=== PATIENT | male | born 1955 | race Caucasian/White ===

== ENCOUNTER 2020-01-17 06:45 | Outpatient (CLI) | payer BC, SELFPAY ==
[2020-01-17 08:46] LABS: Alanine Aminotransferase 23 U/L (4-50); Albumin Level 4.3 g/dL (3.5-5.1); Alkaline Phosphatase 119 U/L (38-126); Aspartate Amino Transferase 29 U/L (17-59); Bilirubin,Total 0.5 mg/dL (0.2-1.3); Blood Urea Nitrogen 23 mg/dL (9-20); Calcium 9.4 mg/dL (8.4-10.2); Carbon Dioxide 27 mmol/L (22-30); Chloride 98 mmol/L (98-107); Cholesterol 250 mg/dL (0-200); Estimated Glomerular Filt Rate > 60; Glucose 98 mg/dL (75-110); HDL Direct 43 mg/dL; Potassium 3.9 mmol/L (3.4-5.0); Sodium 138 mmol/L (137-145); Triglycerides 410 mg/dL (<150); Uric Acid 6.9 mg/dL (3.5-8.5)
[2020-01-17 08:57] LABS: LDL Cholesterol Direct 112 mg/dL
[2020-01-17 11:38] LABS: Vitamin D 25 Hydroxy 29.4 ng/mL
[2020-01-20 12:35] LABS: Testosterone Total 270 ng/dL (250-1100)
== END 2020-01-17 06:46 | disposition home or self-care (01) ==
PROVIDERS: PCP Internal Medicine; Visit Provider Internal Medicine
DX: E78.5 Hyperlipidemia, unspecified (principal); E55.9 Vitamin D deficiency, unspecified; M10.9 Gout, unspecified; I10 Essential (primary) hypertension; Z79.899 Other long term (current) drug therapy; E29.1 Testicular hypofunction
CPT/HCPCS: 36415; 80053; 80061; 82306; 84403; 84550

== ENCOUNTER 2020-07-17 07:11 | Outpatient (CLI) | payer BC, SELFPAY ==
[2020-07-17 08:44] LABS: Alanine Aminotransferase 28 U/L (4-50); Albumin Level 4.2 g/dL (3.5-5.1); Alkaline Phosphatase 114 U/L (38-126); Anion Gap 8 mmol/L (8-16); Aspartate Amino Transferase 32 U/L (17-59); Bilirubin,Total 0.5 mg/dL (0.2-1.3); Blood Urea Nitrogen 17 mg/dL (9-20); Carbon Dioxide 28 mmol/L (22-30); Chloride 100 mmol/L (98-107); Cholesterol 242 mg/dL (0-200); Estimated Glomerular Filt Rate > 60; Glucose 106 mg/dL (75-110); HDL Direct 48 mg/dL; Sodium 136 mmol/L (137-145); Triglycerides 412 mg/dL (<150); Uric Acid 7.6 mg/dL (3.5-8.5)
[2020-07-17 08:55] LABS: LDL Cholesterol Direct 118 mg/dL
[2020-07-17 09:12] LABS: Prostate Specific Antigen 0.5 ng/mL (< OR = 4.0)
== END 2020-07-17 07:12 | disposition home or self-care (01) ==
LOC: ANHLAB 07:13
PROVIDERS: PCP Internal Medicine; Visit Provider Internal Medicine
DX: E78.5 Hyperlipidemia, unspecified (principal); I10 Essential (primary) hypertension; M10.9 Gout, unspecified; Z79.899 Other long term (current) drug therapy; Z12.5 Encounter for screening for malignant neoplasm of prostate
CPT/HCPCS: 36415; 80053; 80061; 84153; 84550; G0103

== ENCOUNTER 2021-06-25 06:42 | Outpatient (CLI) | payer BC, SELFPAY ==
[2021-06-25 07:49] LABS: Alanine Aminotransferase 22 U/L (4-50); Albumin Level 4.5 g/dL (3.5-5.1); Alkaline Phosphatase 136 U/L (38-126); Anion Gap 12 mmol/L (8-16); Aspartate Amino Transferase 26 U/L (17-59); Bilirubin,Total 0.6 mg/dL (0.2-1.3); Blood Urea Nitrogen 23 mg/dL (9-20); Calcium 10.2 mg/dL (8.4-10.2); Carbon Dioxide 26 mmol/L (22-30); Chloride 100 mmol/L (98-107); Cholesterol 274 mg/dL (0-200); Estimated Glomerular Filt Rate 38; Glucose 101 mg/dL (65-110); HDL Direct 54 mg/dL; Potassium 4.1 mmol/L (3.4-5.0); Sodium 138 mmol/L (137-145); Triglycerides 408 mg/dL (<150)
[2021-06-25 08:00] LABS: LDL Cholesterol Direct 109 mg/dL
[2021-06-30 06:44] LABS: Testosterone Total 244 ng/dL (250-1100)
== END 2021-06-25 06:43 | disposition home or self-care (01) ==
PROVIDERS: PCP Internal Medicine; Visit Provider Internal Medicine
DX: I10 Essential (primary) hypertension (principal); M10.9 Gout, unspecified; Z51.81 Encounter for therapeutic drug level monitoring; E78.5 Hyperlipidemia, unspecified; E29.1 Testicular hypofunction
CPT/HCPCS: 36415; 80053; 80061; 84403; 84550

== ENCOUNTER 2021-12-17 07:28 | Outpatient (CLI) | payer BC, SELFPAY ==
[2021-12-17 07:58] LABS: Alanine Aminotransferase 27 U/L (4-50); Albumin Level 4.6 g/dL (3.5-5.1); Alkaline Phosphatase 129 U/L (38-126); Anion Gap 10 mmol/L (8-16); Aspartate Amino Transferase 34 U/L (17-59); Bilirubin,Total 0.8 mg/dL (0.2-1.3); Blood Urea Nitrogen 33 mg/dL (9-20); Carbon Dioxide 29 mmol/L (22-30); Chloride 97 mmol/L (98-107); Cholesterol 172 mg/dL (0-200); Estimated Glomerular Filt Rate 38; Glucose 115 mg/dL (65-110); HDL Direct 51 mg/dL; Potassium 4.4 mmol/L (3.4-5.0); Sodium 136 mmol/L (137-145); Triglycerides 227 mg/dL (<150)
[2021-12-17 08:09] LABS: LDL Cholesterol Direct 72 mg/dL
[2021-12-17 08:28] LABS: Prostate Specific Antigen 0.6 ng/mL (< OR = 4.0)
[2021-12-21 01:48] LABS: Testosterone Total 313 ng/dL (250-1100)
== END 2021-12-17 07:29 | disposition home or self-care (01) ==
PROVIDERS: PCP Internal Medicine; Visit Provider Internal Medicine
DX: I10 Essential (primary) hypertension (principal); Z51.81 Encounter for therapeutic drug level monitoring; Z12.5 Encounter for screening for malignant neoplasm of prostate; E29.1 Testicular hypofunction
CPT/HCPCS: 36415; 80053; 80061; 84153; 84403; G0103

== ENCOUNTER 2022-01-23 07:51 | Outpatient (CLI) | payer BC, SELFPAY ==
[2022-01-23 08:34] LABS: Hematocrit 38.1 % (42.0-52.0); Hemoglobin 12.9 g/dL (14.0-18.0); Mean Corpuscular HGB Conc 33.9 g/dl (32-36); Mean Corpuscular Hemoglobin 30.4 pg (26-34); Mean Corpuscular Volume 89.6 fl (80-100); Mean Platelet Volume 8.6 fl (7.4-10.4); Platelet Count Result 433 k/mm3 (150-375); Red Blood Count 4.25 M/mm3 (4.6-6.20); Red Cell Distribution Width 13.8 % (11.5-14.5); White Blood Count 7.7 K/mm3 (4.5-10.0)
[2022-01-23 08:40] LABS: Add Urine Microscopic? NO; Appearance Urine Clear (Clear); Bilirubin Urine Negative (Negative); Blood Urine Negative (Negative); Color Urine Yellow (Yellow); Glucose Urine UA Negative (Negative); Ketones Urine Negative (Negative); Leukocyte Esterase Ur Negative LEU/UL (Negative); Nitrate Urine Negative (Negative); Protein Urine Negative (Negative); Specific Grav Ur 1.009 (1.001-1.035); Urobilinogen Urine Negative mg/dL (<2.0)
[2022-01-23 08:44] LABS: Creatinine Urine 82.8 mg/dL; Total Protein Urine Random 10 mg/dL; Ur Ttl Prot Creatinine Ratio 0.12 mg/mg (0-0.20)
[2022-01-23 09:09] LABS: Complement C3 119 mg/dL (88-165)
[2022-01-23 09:11] LABS: Albumin Level 4.3 g/dL (3.5-5.1); Anion Gap 10 mmol/L (8-16); Blood Urea Nitrogen 17 mg/dL (9-20); Calcium 9.4 mg/dL (8.4-10.2); Carbon Dioxide 28 mmol/L (22-30); Chloride 100 mmol/L (98-107); Estimated Glomerular Filt Rate 44; Glucose 115 mg/dL (65-110); Phosphorus 3.2 mg/dL (2.5-4.5); Potassium 4.4 mmol/L (3.4-5.0); Sodium 138 mmol/L (137-145)
[2022-01-23 09:17] LABS: Parathyroid Intact 33.8 pg/mL (7.5-53.5)
[2022-01-23 09:23] LABS: Erythrocyte Sedimentation Rate 22 mm/hr (0-20)
[2022-01-25 13:29] LABS: Complement Total CH50 >60 U/mL (31-60)
[2022-01-25 16:52] LABS: Kappa\\Lambda Light Chains 1.35 (0.26-1.65); Lambda Light Chain 22.8 mg/L (5.7-26.3)
[2022-01-28 15:02] LABS: Measured Kappa Chains <1.00 mg/dL (<2.00); Measured Lambda Chains <1.00 mg/dL (<2.00)
== END 2022-01-23 07:52 | disposition home or self-care (01) ==
LOC: ANHLAB 07:53
PROVIDERS: PCP Internal Medicine; Visit Provider Internal Medicine Nephrology
DX: N18.32 Chronic kidney disease, stage 3b (principal)
CPT/HCPCS: 36415; 80069; 81003; 82570; 83883; 83970; 84156; 85027; 85652; 86038; 86160; 86162; 86334; 86335

== ENCOUNTER 2022-05-04 07:41 | Outpatient (CLI) | payer BC, SELFPAY ==
--- NOTE | ~2022-05-04 | US_ITS ---
US renal BI 05/04/2022 08:04 Procedure: Realtime transabdominal ultrasound of the kidneys and bladder. Indication: Chronic kidney disease stage III Comparison: No prior studies for comparison. Findings: There is bilateral renal cortical thinning with increased cortical echotexture. Bilateral c ysts are present measuring 11 mm or less. No renal masses, hydronephrosis or stones identified. Bilat eral ureteral jets are present. The right kidney measures 11.1 cm and left kidney measures 14.4 cm. Bladder within normal limits. Prostate gland is enlarged. Impression: 1: Bilateral renal cortical thinning with increased cortical echotexture, consistent with chronic micki al disease. Reviewed, dictated and finalized at location B. Impression: 1: Bilateral renal cortical thinning with increased cortical echotexture, consi stent with chronic renal disease.
== END 2022-05-04 07:42 | disposition home or self-care (01) ==
PROVIDERS: PCP Internal Medicine; Visit Provider Internal Medicine Nephrology
DX: N18.32 Chronic kidney disease, stage 3b (principal)
CPT/HCPCS: 76775

== ENCOUNTER 2022-06-23 06:55 | Outpatient (CLI) | payer BC, SELFPAY ==
[2022-06-23 16:14] LABS: Alanine Aminotransferase 25 U/L (6-50); Albumin Level 4.5 g/dL (3.5-5.1); Alkaline Phosphatase 133 U/L (38-126); Anion Gap 11 mmol/L (8-16); Aspartate Amino Transferase 28 U/L (17-59); Bilirubin,Total 0.4 mg/dL (0.2-1.3); Blood Urea Nitrogen 27 mg/dL (9-20); Calcium 9.3 mg/dL (8.4-10.2); Carbon Dioxide 29 mmol/L (22-30); Chloride 99 mmol/L (98-107); Cholesterol 206 mg/dL (0-200); Estimated Glomerular Filt Rate 47; Glucose 104 mg/dL (65-110); HDL Direct 64 mg/dL; Potassium 4.4 mmol/L (3.4-5.0); Sodium 139 mmol/L (137-145); Triglycerides 256 mg/dL (<150); Uric Acid 7.6 mg/dL (3.5-8.5)
[2022-06-23 16:24] LABS: LDL Cholesterol Direct 75 mg/dL
[2022-06-23 16:30] LABS: Vitamin D 25 Hydroxy 58.9 ng/mL
[2022-06-27 16:12] LABS: Testosterone Total 317 ng/dL (250-1100)
== END 2022-06-23 06:56 | disposition home or self-care (01) ==
LOC: ANHLAB 06:56
PROVIDERS: PCP Internal Medicine; Visit Provider Internal Medicine
DX: Z51.81 Encounter for therapeutic drug level monitoring (principal); I10 Essential (primary) hypertension; E29.1 Testicular hypofunction; M10.9 Gout, unspecified; E55.9 Vitamin D deficiency, unspecified
CPT/HCPCS: 36415; 80053; 80061; 82306; 84403; 84550

== ENCOUNTER 2022-12-30 08:14 | Outpatient (CLI) | payer BC, SELFPAY ==
[2022-12-30 08:45] LABS: Alanine Aminotransferase 32 U/L (6-50); Albumin Level 4.8 g/dL (3.5-5.1); Alkaline Phosphatase 141 U/L (38-126); Anion Gap 11 mmol/L (8-16); Aspartate Amino Transferase 42 U/L (17-59); Bilirubin,Total 0.9 mg/dL (0.2-1.3); Blood Urea Nitrogen 26 mg/dL (9-20); Calcium 9.1 mg/dL (8.4-10.2); Carbon Dioxide 27 mmol/L (22-30); Chloride 96 mmol/L (98-107); Cholesterol 181 mg/dL (0-200); Estimated Glomerular Filt Rate 41; Glucose 116 mg/dL (65-110); HDL Direct 55 mg/dL; Potassium 3.3 mmol/L (3.4-5.0); Sodium 134 mmol/L (137-145); Triglycerides 307 mg/dL (<150); Uric Acid 8.9 mg/dL (3.5-8.5)
[2022-12-30 08:56] LABS: LDL Cholesterol Direct 58 mg/dL
[2022-12-30 09:33] LABS: Vitamin D 25 Hydroxy 51.2 ng/mL
== END 2022-12-30 08:15 | disposition home or self-care (01) ==
PROVIDERS: PCP Internal Medicine; Visit Provider Internal Medicine
DX: Z51.81 Encounter for therapeutic drug level monitoring (principal); I10 Essential (primary) hypertension; E78.5 Hyperlipidemia, unspecified; E55.9 Vitamin D deficiency, unspecified; M10.9 Gout, unspecified
CPT/HCPCS: 36415; 80053; 80061; 82306; 84550

== ENCOUNTER 2023-07-14 06:52 | Outpatient (CLI) | payer BC, SELFPAY ==
[2023-07-14 08:00] LABS: Alanine Aminotransferase 32 U/L (6-50); Albumin Level 4.4 g/dL (3.5-5.1); Alkaline Phosphatase 131 U/L (38-126); Anion Gap 9 mmol/L (8-16); Aspartate Amino Transferase 32 U/L (17-59); Bilirubin,Total 0.7 mg/dL (0.2-1.3); Blood Urea Nitrogen 24 mg/dL (9-20); Calcium 9.3 mg/dL (8.4-10.2); Carbon Dioxide 29 mmol/L (22-30); Chloride 99 mmol/L (98-107); Cholesterol 203 mg/dL (0-200); Estimated Glomerular Filt Rate 47; Glucose 108 mg/dL (65-110); HDL Direct 51 mg/dL; Potassium 3.7 mmol/L (3.4-5.0); Sodium 137 mmol/L (137-145); Triglycerides 326 mg/dL (<150)
[2023-07-14 08:10] LABS: LDL Cholesterol Direct 79 mg/dL
[2023-07-14 08:30] LABS: Prostate Specific Antigen 0.8 ng/mL (< OR = 4.0)
== END 2023-07-14 06:53 | disposition home or self-care (01) ==
LOC: ANHLAB 06:53
PROVIDERS: PCP Nurse Practitioner Family; Visit Provider Nurse Practitioner
DX: E78.5 Hyperlipidemia, unspecified (principal); Z12.5 Encounter for screening for malignant neoplasm of prostate
CPT/HCPCS: 36415; 80053; 80061; 84153; G0103

== ENCOUNTER 2023-11-01 03:31 | Day surgery (SDC) | payer BC, SELFPAY ==
[2023-10-23 15:36] VITALS: BMI 30.4
--- NOTE | 2023-10-30 11:41 | SUR.PREOP ---
Patient called regarding upcoming procedure. Reviewed preop instructions, appointment times, and procedure prep.
--- NOTE | 2023-10-31 15:47 | PM.HPGS ---
History of Present Illness History of Present Illness Consent: Risks, benefits, and alternatives have been discussed and questions answered. Patient agrees to proceed with procedure. Chief complaint: neoplasm screening Narrative: Abhi Mckeon is a 67 year old male Referred for colon cancer screening. This is I believe his 1st colonoscopy. Review of Systems Review of Systems: All systems reviewed & are unremarkable except as noted in HPI and below PMFSH Past Medical History Medical History Hypertension Family History Family History Sibling Patient's sister is in good health Patient's brother is in good health Mother Family history of arthritis Father Family history of diabetes mellitus in first degree relative Diabetes mellitus Social History Social History Smoking packs per day: 1 Smoking cigarettes per day: 20.0 Years smoked: 28 Smoking pack-years: 28.00 Smoking status: Former smoker Tobacco type: cigarettes Second hand tobacco smoke exposure: Yes Smoking end date: 11/26/85 Alcohol intake: current Drinks per week: 7 Alcohol use details: 1 RUM DAILY Substance use: never Substance use type: does not use Lack of Transportation: No Lack of Food: Never True Current Housing: I Have Housing Concerned About Future Housing: No Difficulty Paying Gas/Electric Bills: No Difficulty Paying for Meds: No Currently Unemployed: No Education: Associate Degree Difficulty w/ Childcare or Family Care: No Living arrangements: with family Gender identity (if verbalized by the patient): Male Spiritual care concerns: No Meds Home Medications and Allergies Home Medications Medication Instructions Recorded Confirmed Type aspirin 81 mg chewable tablet 81 mg PO DAILY 10/22/19 10/23/23 History cholecalciferol (vitamin D3) 25 25 mcg PO DAILY 07/08/21 10/23/23 History mcg (1,000 unit) capsule famotidine 20 mg tablet 20 mg PO DAILY 07/08/21 10/23/23 History tzeepbgv-tj-wqcwp 300 mcg-K 60 1 tablet PO DAILY 07/08/21 10/23/23 History mcg-lycop 600 mcg-lutein 300 mcg tablet (Centrum Silver Men) turmeric root extract 500 mg 500 mg PO DAILY 07/08/21 10/23/23 History capsule omega-3 acid ethyl esters 1 gram 1 cap PO BID #180 caps 01/17/22 10/23/23 Rx capsule (Lovaza) fluticasone propionate 50 2 spray intranasal DAILY #16 grams 01/02/23 10/23/23 Rx mcg/actuation nasal spray,suspension (Flonase Allergy Relief) mecobalamin (vitamin B12) 1,000 1,000 mcg PO DAILY 01/02/23 10/23/23 History mcg chewable tablet amlodipine 5 mg tablet 5 mg PO DAILY #90 tabs 03/12/23 10/23/23 Rx irbesartan 300 mg tablet See Rx Instructions .Route 05/14/23 10/23/23 Rx .COMPLEX #90 tabs chlorthalidone 25 mg tablet See Rx Instructions .Route 06/08/23 10/23/23 Rx .COMPLEX #90 tabs atorvastatin 40 mg tablet 40 mg PO QHS #90 tabs 07/16/23 10/23/23 Rx Allergies Allergy/AdvReac Type Severity Reaction Status Date / Time poison rossi extract Allergy Unknown Hives Verified 11/01/23 09:49 Exam Resp: Auscultation: clear to auscultation bilaterally Cardio: Rate: regular rate Rhythm: regular rhythm GI: GI Palp: Yes Soft to palpation and No Tenderness to palpation present (GI) Assessment and Plan Assessment and plan (1) Screening for colon cancer: Code(s): Z12.11 - Encounter for screening for malignant neoplasm of colon Status: Acute Assessment and Plan: Colonoscopy with possible biopsy or polypectomy or cautery or injection of substances.
[2023-11-01 09:52] VITALS: BP 125/75; PULSE 79; RESP 18; TEMP 36.1; O2SAT 97
[2023-11-01] MEDS: LACTATED RINGERS 1,000 ML 150 ML IV CONT (10:01)
--- NOTE | 2023-11-01 10:16 | WPDANESEPPF ---
Anes - Initial Pre Proc Eval Procedure: Operation Date: 11/01/23 10:30 Proposed Procedures p Screening Colonoscopy - Gen Ojeda MD Date/Time: 11/01/23 10:16 Surgeon: Gen Ojeda MD Pre Op Diagnosis: neoplasm screening Patient Data Age: 67 Gender: M Height: 1.83 m Weight: 101.4 kg Last Vital Signs Temp 96.9 F L 11/01/23 09:52 Pulse 79 11/01/23 09:52 Resp 18 11/01/23 09:52 BP 125/75 11/01/23 09:52 Pulse Ox 97 11/01/23 09:52 O2 Del Method Room Air 11/01/23 09:52 Allergies Allergy/AdvReac Type Severity Reaction Status Date / Time poison rossi extract Allergy Unknown Hives Verified 11/01/23 09:49 Home Medications Medication Instructions Recorded Confirmed Type aspirin 81 mg chewable tablet 81 mg PO DAILY 10/22/19 10/23/23 History cholecalciferol (vitamin D3) 25 25 mcg PO DAILY 07/08/21 10/23/23 History mcg (1,000 unit) capsule famotidine 20 mg tablet 20 mg PO DAILY 07/08/21 10/23/23 History qwxqhsvt-xe-xtddl 300 mcg-K 60 1 tablet PO DAILY 07/08/21 10/23/23 History mcg-lycop 600 mcg-lutein 300 mcg tablet (Centrum Silver Men) turmeric root extract 500 mg 500 mg PO DAILY 07/08/21 10/23/23 History capsule omega-3 acid ethyl esters 1 gram 1 cap PO BID #180 caps 01/17/22 10/23/23 Rx capsule (Lovaza) fluticasone propionate 50 2 spray intranasal DAILY #16 grams 01/02/23 10/23/23 Rx mcg/actuation nasal spray,suspension (Flonase Allergy Relief) mecobalamin (vitamin B12) 1,000 1,000 mcg PO DAILY 01/02/23 10/23/23 History mcg chewable tablet amlodipine 5 mg tablet 5 mg PO DAILY #90 tabs 03/12/23 10/23/23 Rx irbesartan 300 mg tablet See Rx Instructions .Route 05/14/23 10/23/23 Rx .COMPLEX #90 tabs chlorthalidone 25 mg tablet See Rx Instructions .Route 06/08/23 10/23/23 Rx .COMPLEX #90 tabs atorvastatin 40 mg tablet 40 mg PO QHS #90 tabs 07/16/23 10/23/23 Rx Patient hx anesthesia problems: none Family hx anesthesia problems: none Results Review: All pre-operative results and documents have been reviewed as part of the pre-operative evaluation. [facility] Past Medical History Medical History (Updated 07/16/23 @ 15:33 by Jaylene Ovalles APRN) Hypertension Family History Family History Sibling Patient's sister is in good health Patient's brother is in good health Mother Family history of arthritis Father Family history of diabetes mellitus in first degree relative Diabetes mellitus Social History Social History Smoking packs per day: 1 Smoking cigarettes per day: 20.0 Years smoked: 28 Smoking pack-years: 28.00 Smoking status: Former smoker Tobacco type: cigarettes Second hand tobacco smoke exposure: Yes Smoking end date: 11/26/85 Alcohol intake: current Drinks per week: 7 Alcohol use details: 1 RUM DAILY Substance use: never Substance use type: does not use Lack of Transportation: No Lack of Food: Never True Current Housing: I Have Housing Concerned About Future Housing: No Difficulty Paying Gas/Electric Bills: No Difficulty Paying for Meds: No Currently Unemployed: No Education: Associate Degree Difficulty w/ Childcare or Family Care: No Living arrangements: with family Gender identity (if verbalized by the patient): Male Spiritual care concerns: No Anes - Eval Final PreProcedure Day of Procedure 11/01/23 10:16 Patient weight: normal Heart: regular rate and rhythm Lungs: clear to auscultation Airway: Mallampati scale class II Neurological: alert and oriented Last oral intake: >/= 8 hours ASA classification: II Emergent: no Anesthetic plan: proceed Anesthesia type and monitoring: general GIVS and standard monitoring Results Review: All pre-operative results and documents have been reviewed as part of the pre-operative evaluation. Informed Consent: T
[2023-11-01] MEDS: SIMETHICONE ORAL SUSPENSION 20 MG/0.3 ML 30 ML BOTTLE 0.6 ML IRRIGATION (11:00)
[2023-11-01 11:12] VITALS: BP 108/68; PULSE 67; RESP 22; O2SAT 99
[2023-11-01 11:22] VITALS: BP 107/66; PULSE 68; RESP 16; O2SAT 99
== END 2023-11-01 11:35 | disposition home or self-care (01) ==
PROVIDERS: PCP Nurse Practitioner Family; Visit Provider Internal Medicine Gastroenterology
PROC: 0DJD8ZZ Inspection of Lower Intestinal Tract, Via Natural or Artificial Opening Endoscopic (ICD-10-PCS; CPT 45378; principal; 2023-11-01 10:30)
DX: Z12.11 Encounter for screening for malignant neoplasm of colon (principal); K57.30 Diverticulosis of large intestine without perforation or abscess without bleeding; I10 Essential (primary) hypertension; Z79.82 Long term (current) use of aspirin; Z87.891 Personal history of nicotine dependence
CPT/HCPCS: 45378; J2704; J7120

== ENCOUNTER 2024-01-18 15:28 | Outpatient (CLI) | payer BC, SELFPAY ==
[2024-01-18 15:52] LABS: Basophils Absolute Auto 0.1 K/mm3 (0.0-0.1); Basophils Percent Auto 1.3 % (0.2-1.2); Eosinophils Absolute Auto 0.2 K/mm3 (0-0.3); Eosinophils Percent Auto 2.3 % (0-4.4); Hematocrit 41.2 % (42.0-52.0); Hemoglobin 13.8 g/dL (14.0-18.0); Immature Granulocyte Absolute 0.02 K/mm3 (0.00-0.031); Immature Granulocyte Percent A 0.2 % (0-0.5); Lymphocytes Absolute Auto 2.73 K/mm3 (0.9-3.2); Lymphocytes Percent Auto 33.1 % (18.3-44.2); Mean Corpuscular HGB Conc 33.5 g/dl (32-36); Mean Corpuscular Hemoglobin 30.4 pg (26-34); Mean Corpuscular Volume 90.7 fl (80-100); Mean Platelet Volume 8.8 fl (7.4-10.4); Monocytes Percent Auto 12.6 % (2.6-8.5); Neutrophils Absolute Auto 4.2 K/mm3 (1.3-6.7); Neutrophils Percent Auto 50.5 % (45.5-73.1); Platelet Count Result 394 k/mm3 (150-375); Red Blood Count 4.54 M/mm3 (4.6-6.20); Red Cell Distribution Width 13.9 % (11.5-14.5); White Blood Count 8.2 K/mm3 (4.5-10.0)
[2024-01-18 16:02] LABS: Alanine Aminotransferase 37 U/L (6-50); Albumin Level 4.4 g/dL (3.5-5.1); Alkaline Phosphatase 103 U/L (38-126); Anion Gap 10 mmol/L (8-16); Aspartate Amino Transferase 39 U/L (17-59); Bilirubin,Total 0.6 mg/dL (0.2-1.3); Blood Urea Nitrogen 22 mg/dL (9-20); Calcium 9.6 mg/dL (8.4-10.2); Carbon Dioxide 26 mmol/L (22-30); Chloride 102 mmol/L (98-107); Cholesterol 172 mg/dL (0-200); Estimated Glomerular Filt Rate > 60; Glucose 122 mg/dL (65-110); HDL Direct 49 mg/dL; Potassium 3.3 mmol/L (3.4-5.0); Sodium 138 mmol/L (137-145); Triglycerides 467 mg/dL (<150)
[2024-01-18 16:13] LABS: LDL Cholesterol Direct 71 mg/dL
== END 2024-01-18 15:29 | disposition home or self-care (01) ==
LOC: ANHLAB 15:29
PROVIDERS: PCP Nurse Practitioner Family; Visit Provider Nurse Practitioner Family
DX: M15.0 Primary generalized (osteo)arthritis (principal); E78.5 Hyperlipidemia, unspecified; I12.9 Hypertensive chronic kidney disease with stage 1 through stage 4 chronic kidney disease, or unspecified chronic kidney disease; N18.30 Chronic kidney disease, stage 3 unspecified
CPT/HCPCS: 36415; 80053; 80061; 83036; 85025

== ENCOUNTER 2024-07-26 07:00 | Outpatient (CLI) | payer BC, SELFPAY ==
[2024-07-26 07:45] LABS: Alanine Aminotransferase 28 U/L (6-50); Albumin Level 4.6 g/dL (3.5-5.1); Alkaline Phosphatase 115 U/L (38-126); Anion Gap 12 mmol/L (4-12); Aspartate Amino Transferase 39 U/L (17-59); Bilirubin,Total 0.6 mg/dL (0.2-1.3); Blood Urea Nitrogen 27 mg/dL (9-20); Calcium 9.1 mg/dL (8.4-10.2); Carbon Dioxide 29 mmol/L (22-30); Chloride 97 mmol/L (98-107); Cholesterol 168 mg/dL (0-200); Estimated Glomerular Filt Rate 47; Glucose 106 mg/dL (65-110); HDL Direct 50 mg/dL; Potassium 3.9 mmol/L (3.4-5.0); Sodium 138 mmol/L (137-145); Triglycerides 211 mg/dL (<150); Uric Acid 11.4 mg/dL (3.5-8.5)
[2024-07-26 07:56] LABS: LDL Cholesterol Direct 61 mg/dL
[2024-07-26 07:59] LABS: Iron 106 ug/dL (49-181)
[2024-07-26 08:01] LABS: Basophils Absolute Auto 0.1 K/mm3 (0.0-0.1); Basophils Percent Auto 1.4 % (0.2-1.2); Eosinophils Absolute Auto 0.2 K/mm3 (0-0.3); Hematocrit 41.5 % (42.0-52.0); Hemoglobin 13.9 g/dL (14.0-18.0); Immature Granulocyte Absolute 0.03 K/mm3 (0.00-0.031); Immature Granulocyte Percent A 0.4 % (0-0.5); Lymphocytes Absolute Auto 2.52 K/mm3 (0.9-3.2); Lymphocytes Percent Auto 32.5 % (18.3-44.2); Mean Corpuscular HGB Conc 33.5 g/dl (32-36); Mean Corpuscular Hemoglobin 30.9 pg (26-34); Mean Corpuscular Volume 92.2 fl (80-100); Mean Platelet Volume 8.8 fl (7.4-10.4); Monocytes Percent Auto 12.6 % (2.6-8.5); Neutrophils Absolute Auto 3.9 K/mm3 (1.3-6.7); Neutrophils Percent Auto 50.1 % (45.5-73.1); Platelet Count Result 454 k/mm3 (150-375); Red Cell Distribution Width 13.2 % (11.5-14.5); White Blood Count 7.8 K/mm3 (4.5-10.0)
[2024-07-26 08:09] LABS: Percent Iron Saturation 30 % (20-50)
[2024-07-26 08:13] LABS: Hemoglobin A1C 6.2 % (<5.7)
[2024-07-26 08:14] LABS: Prostate Specific Antigen 0.8 ng/mL (< OR = 4.0)
== END 2024-07-26 07:01 | disposition home or self-care (01) ==
LOC: ANHLAB 07:03
PROVIDERS: PCP Nurse Practitioner Family; Visit Provider Nurse Practitioner Family
DX: M10.9 Gout, unspecified (principal); R53.83 Other fatigue; Z12.5 Encounter for screening for malignant neoplasm of prostate; D64.9 Anemia, unspecified; I10 Essential (primary) hypertension; E78.5 Hyperlipidemia, unspecified; E78.00 Pure hypercholesterolemia, unspecified; R73.01 Impaired fasting glucose
CPT/HCPCS: 36415; 80053; 80061; 83036; 83540; 83550; 84153; 84443; 84550; 85025; G0103

== ENCOUNTER 2024-07-31 07:24 | Emergency (ER) | payer BC, SELFPAY ==
--- NOTE | ~2024-07-31 | XR_ITS ---
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 No fracture, subluxation or disloc ation. No focal soft tissue abnormality. No foreign bodies. Impression: 1: No acute fracture. Reviewed, dictated and finalized at location B. Impression: 1: No acute fracture.
[2024-07-31 07:25] VITALS: BP 149/71; PULSE 89; RESP 16; TEMP 36.7; O2SAT 99
--- NOTE | 2024-07-31 07:46 | ED.LOWEXIN ---
HPI - Extremity Injury (Lower) General Chief Complaint: Extremity Injury, Lower Stated Complaint: left foot pain Time Seen by Provider: 07/31/24 07:36 History of Present Illness HPI Narrative: Patient noticed today that he had pain and bruising to the top of his left foot. Cannot recall any obvious injuries however he does for work at a construction site and thinks he may have dropped something without realizing. Hurts to walk on a or flex it Related Data Home Medications Medication Instructions Recorded Confirmed aspirin 81 mg chewable tablet 81 mg PO DAILY 10/22/19 07/29/24 cholecalciferol (vitamin D3) 25 25 mcg PO DAILY 07/08/21 07/29/24 mcg (1,000 unit) capsule famotidine 20 mg tablet 20 mg PO DAILY 07/08/21 07/29/24 ukipaqdx-mp-ykckj 300 mcg-K 60 1 tablet PO DAILY 07/08/21 07/29/24 mcg-lycop 600 mcg-lutein 300 mcg tablet (Centrum Silver Men) turmeric root extract 500 mg 500 mg PO DAILY 07/08/21 07/29/24 capsule mecobalamin (vitamin B12) 1,000 1,000 mcg PO DAILY 01/02/23 07/29/24 mcg chewable tablet vitamin K2 100 mcg capsule 100 mcg PO DAILY 07/29/24 07/29/24 Allergies Allergy/AdvReac Type Severity Reaction Status Date / Time poison rossi extract Allergy Unknown Hives Verified 07/29/24 08:52 Review of Systems Review of Systems: All systems reviewed & are unremarkable except as noted in HPI and below PMFSH Past Medical History Medical History (Updated 07/31/24 @ 08:29 by Erika Hatfield MD) Hypertension Family History Family History Sibling Patient's sister is in good health Patient's brother is in good health Mother Family history of arthritis Father Family history of diabetes mellitus in first degree relative Diabetes mellitus Social History Social History Smoking packs per day: 1 Smoking cigarettes per day: 20.0 Years smoked: 28 Smoking pack-years: 28.00 Smoking status: Former smoker Tobacco type: cigarettes Second hand tobacco smoke exposure: Yes Smoking end date: 11/26/85 Alcohol intake: current Drinks per week: 7 Alcohol use details: 1 RUM DAILY Substance use: never Substance use type: does not use Do You Feel Safe in your Home?: Yes Lack of Transportation: No Lack of Food: Never True Current Housing: I Have Housing Concerned About Future Housing: No Difficulty Paying Gas/Electric Bills: No Difficulty Paying for Meds: No Currently Unemployed: No Education: Associate Degree Difficulty w/ Childcare or Family Care: No Living arrangements: with family Occupation/Education: occupation Gender identity (if verbalized by the patient): Male Sexual Orientation (if Verbalized by the Patient): Straight or Heterosexual Spiritual care concerns: No Agree to blood products: Yes Exam Narrative: EXAMINATION OF ORGAN SYSTEMS/BODY AREAS: Constitutional: Vital signs per nursing GENERAL:[No acute distress, non-toxic appearing.] HEAD: Normal with no signs of head trauma. EYES: EOMI, conjunctiva normal ENT: Hearing grossly intact LUNGS: Nonlabored breathing. HEART: [Regular rate and rhythm], normal DP pulse ABD: No distension EXT: Normal range of motion, no obvious deformity, some tenderness to the top of the left foot SKIN: Bruising dorsal left foot NEURO: [Alert and oriented x 3. No gross focal sensory or strength deficits.] PSYCH: Normal affect Course Vital Signs Vital signs: Vital Signs Temperature 98.1 F 07/31/24 07:25 Pulse Rate 89 07/31/24 07:25 Respiratory Rate 16 07/31/24 07:25 Blood Pressure 149/71 H 07/31/24 07:25 Pulse Oximetry 99 07/31/24 07:25 Oxygen Delivery Room Air 07/31/24 07:25 Temperature 98.1 F 07/31/24 07:25 Pulse Rate 89 07/31/24 07:25 Respiratory Rate 16 07/31/24 07:25 Blood Pressure 149/71 H 07/31/24 07:25 Pulse Oximetry 99 07/31/24 07:25 O
== END 2024-07-31 08:30 | disposition home or self-care (01) ==
PROVIDERS: Emergency Provider Emergency Medicine; PCP Nurse Practitioner Family
DX: S90.32XA Contusion of left foot, initial encounter (principal); X58.XXXA Exposure to other specified factors, initial encounter; Z79.82 Long term (current) use of aspirin; I10 Essential (primary) hypertension; Z87.891 Personal history of nicotine dependence
CPT/HCPCS: 73630; 99283

== ENCOUNTER 2025-01-31 06:38 | Outpatient (CLI) | payer BC, SELFPAY ==
--- OUTSIDE RECORDS SUMMARY | 2025-01-31 06:41 | XMS_ITS | Continuity of Care Document ---
Author Organization [facility] Address [address] [place] [address] Phone Care Team Providers Care Stave Inspector Name Role Phone Aguila Martines MD Unavailable Unavailable Allergies, Adverse Reactions, Alerts Substance Reaction Status Criticality No Known Allergies Active No Inform ation Medications Medication Instructions Dosage Effective Dates (start - stop) Status Comments Soma 350 mg tablet take 1 tablet by ora l route 3 times every day and at bedtime 350 MG - Active Medrol (Linden) 4 mg tablets in a dose pack Take as Directed - Active Medrol (Linden) 4 mg tablets in a dose pack Take as Directed - Active Medrol (Ilnden) 4 mg tablets in a dose pack - Active Ultram 50 mg tablet take 1 tablet by ora l route every 4 - 6 hours as needed - Active Medrol (Linden) 4 mg tablets in a dose pack Take as Directed - Active aspirin 81 mg tablet,delayed release take 1 tablet by oral route every day 81 MG - Active omeprazole 20 mg capsule,delayed release take 1 capsule by oral route every day 30 minutes to 1 hour before a meal 20 MG - Active lisinopril 20 mg tablet take 1 tablet by oral route every day 20 MG - Active Procedures Procedure Date OFFICE CONSULTATION OFFICE/OUTPATIENT VISIT EST OFFICE/OUTPATIENT VISIT EST OFFICE/OUTPATIENT VISIT NEW Advance Directives Directive Yes / No Effective Date File Name No Information Encounters Encounter Description Practice Location Reason(s) For Visit Diagnoses Date Provider Providers Copied on Encounter [facility], [address] [place] [address], [id number], [place] tel:[phone] [facility] No Information 7 Conrad Sheehan. [address], [place], [place], [id number]. tel:[phone] OFFICE CONSULTATION [facility], [address] [place] [address], [address], [place] tel:[phone] [facility] eval low back,leg pain (chief complaint) Elevated blood-pressu re reading, w/o diagnosis of htnBody mass index (BMI) 29.0-29.9, adultOther chronic painChronic bilateral low back pain with bilateral sciaticaBulg e of lumbar disc without myelopathy 7 Brittney De La Cruz. [address] [place], [place], [id number]. tel:[phone] Referring Provider: Jonny Carlisle, [address] [place] [address], [id number] . tel:[phone] OFFICE/OUTPAT IENT VISIT EST [facility], [address] [place] [address], [address], [place] tel:[phone] [facility] Chronic bilateral low back pain with bilateral sciatica 7 Damaris Fuller. [address] [place] [address], [id number]. tel:[phone] Specialist : Jono Lugo, [address] [place] [address], [id number] . tel:[phone] OFFICE/OUTPAT IENT VISIT EST [facility], [address] [place] [address], [address], [place] tel:[phone] [facility] Follow Up of lumbar-MRI results (chief complaint) Lumbar post-laminec luisa syndromeSpin al stenosis of lumbar region 7 Damaris Fuller. [address] [place], [place], [id number]. tel:[phone] OFFICE/OUTPAT IENT VISIT [facility], [address], [address], tel:[phone] [facility] LBP with radiculopath y (chief complaint) Lumbar post-laminec luisa syndromeEsse ntial (primary) hypertension 201 7 Damaris Goodesz. [address], [place], [id number]. tel:[phone] Family History Family Member Type Diagnosis Age At Onset Brother Problem (finding) Alive and well Sister Problem (finding) Alive and well Mother Problem (finding) Alive and well Father Problem (finding) stroke 79 Payers Payer name Insurance type Covered democrat ID Authoriza tion(s) Blue Access PPO E2 OT [id number] Social History Type Description Quantity Date Captured Comments Sex Male Smoking Status No Information Chief Complaint And Reason For Visit No Information Reason For Referral Reason For Referral No Information Plan Of Treatment Date Type Action Status Referral Ordered: MRI SPI CANAL&CNTS C-/C+ LMBR spine, lumbar Appointment date/timeframe: 01/29/2017 ordered Referral Ordered: RADEX SPI LUMBOSAC MINIMUM 4 VIEWS ordered History Of Present Illness Encounter Date Complaint History Of Prese nt Illness eval low back,leg pain Follow Up of lumbar-MRI results LBP with radiculopathy Functional Status Date Functional Assessmen t No Information Instructions Date Instruction Additional Infor mation Take medication as prescribed. R elated to Bulge of lumbar disc without myelopathy Hypertension education Related t o Elevated blood-pressure reading without diagnosis of hypertension Activity as tolerated. Related t o Bulge of lumbar disc without myelopathy Avoid prolonged bed rest. Relate d to Bulge of lumbar disc without myelopathy Giving encouragement to exercise Related to Body mass index (BMI) 29.0-29.9, adult Take medication as prescribed. R elated to Chronic bilateral low back pain with bilateral sciatica Activity as tolerated. Related t o Chronic bilateral low back pain with bilateral sciatica Avoid prolonged bed rest. Relate d to Chronic bilateral low back pain with bilateral sciatica Activity as tolerated. Related t o Spinal stenosis of lumbar region Take medication as directed. Rel ated to Spinal stenosis of lumbar region Apply ice and/or heat as tolerat ed Related to Spinal stenosis of lumbar region Giving encouragement to exercise Related to Essential (primary) hypertension Activity as tolerated. Related t o Lumbar post-laminectomy syndrome Avoid prolonged bed rest. Relate d to Lumbar post-laminectomy syndrome Take medication as prescribed. R elated to Lumbar post-laminectomy syndrome Assessments Type Assessment Date No Information Patient Care Teams Name Effective Dates (start - stop) Status Members No Information
--- OUTSIDE RECORDS SUMMARY | 2025-01-31 06:41 | XMS_ITS | Continuity of Care Document ---
Author Organization [facility] Address [address] [place] [address] Phone Care Team Providers Care Photography Assistant Name Role Phone [place] Lorie RUBI Unavailable Unavailable Procedures Procedure Date PT RE-EVALUATION THERAPEUTIC EXERCISES MANUAL THERAPY FUNC ACTIVITY THERAPEUTIC EXERCISES NEUROMUSCULAR RE-ED MANUAL THERAPY FUNC ACTIVITY THERAPEUTIC EXERCISES NEUROMUSCULAR RE-ED MANUAL THERAPY FUNC ACTIVITY THERAPEUTIC EXERCISES NEUROMUSCULAR RE-ED MANUAL THERAPY FUNC ACTIVITY THERAPEUTIC EXERCISES NEUROMUSCULAR RE-ED MANUAL THERAPY FUNC ACTIVITY THERAPEUTIC EXERCISES NEUROMUSCULAR RE-ED MANUAL THERAPY FUNC ACTIVITY THERAPEUTIC EXERCISES NEUROMUSCULAR RE-ED MANUAL THERAPY FUNC ACTIVITY THERAPEUTIC EXERCISES NEUROMUSCULAR RE-ED MANUAL THERAPY FUNC ACTIVITY PT EVALUATION THERAPEUTIC EXERCISES NEUROMUSCULAR RE-ED Advance Directives Directive Yes / No Effective Date File Name No Information Encounters Encounter Description Practice Location Reason(s) For Visit Diagnoses Date Provider Providers Copied on Encounter [facility], [facility], [place], [place], [id number], [place] tel:[phone] [facility] No Information 6 Georgetown Lorie. [address] [place] [address], [address], [place], [address], [place]. tel: [phone] [facility], [address], [place], [place], [id number], [place] tel:[phone] [facility] No Information 6 6 Georgetown Lorie. [address] [place] [address], [address], [place], [address], [place]. tel: [phone] [facility] [address], [place], [place], [id number], [place] tel:[phone] [facility] No Information 6 Christel Lorie. [address] [place] [address], [address], [place], [address], [place]. tel: [phone] [facility] [address], [place], [place], [id number], [place] tel:[phone] [facility] No Information 2 6 Christel Lorie. [address] [place] [address], [address], [place], [address], [place]. tel: [phone] [facility], [place], [place], [id number], [place] tel:[phone] [facility] No Information 8 6 Georgetown Lorie. [address] [place] [address], [address], [place], [address], [place]. tel: [phone] [facility] [address], [place], [place], [id number], [place] tel:[phone] [facility] No Information 6 Christel Lorie. [address] [place] [address], [address], [place], [address], [place]. tel: [phone] [facility] [address], [place], [place], [id number], [place] tel:[phone] [facility] No Information 6 Georgetown Lorie. [address] [place] [address], [address], [place], [place], [facility], . tel: [phone] [address], [place], [place], [id number], tel:[phone] [facility] No Information 6 Christel Lorie. [address] [place] [address], [facility] [address], [place], [place], [facility], . tel: [phone] [address], [place], [place], [id number], tel:[phone] [facility] No Information 6 Georgetown Lorie. [address] [place] [address], [address], [place], [place], [facility], . tel: [phone] [address], [place], [place], [id number], tel:[phone] [facility] Pain in left shoulderStiffnes s of left shoulder, not elsewhere classifiedMuscle weakness (generalized)Imp ingement syndrome of left shoulder 6 Georgetown Lorie. [address] [place] [address], [address], [place], [place], [facility], . tel: [phone] Family History Family Member Type Diagnosis Age At Onset No Information Payers Payer name Insurance type Covered constitution party ID Karen prieto(s) [facility] [id number] Social History Type Description Quantity Date Captured Comments Sex Male Smoking Status No Information Chief Complaint And Reason For Visit No Information Reason For Referral Reason For Referral No Information History Of Present Illness Encounter Date Complaint History Of Prese nt Illness No Information Functional Status Date Functional Assessmen t No Information Instructions Date Instruction Additional Infor mation No Information Assessments Type Assessment Date No Information Patient Care Teams Name Effective Dates (start - stop) Status Members No Information
--- OUTSIDE RECORDS SUMMARY | 2025-01-31 06:41 | XMS_ITS | Clinical Summary ---
Author Organization [facility] Address [address] [place] [address] Phone Care Team Providers Care Supervisor Bottle Machines Name Role Phone Unavailable Primary Care Provider Unavailabl e Allergies No known active allergies Medications bimatoprost (LUMIGAN) 0.03 % OP Drop Administer 1 Drop in both eyes daily at bedtime. Active lisinopril-hydr ochlorothiazide (ZESTORETIC) 10-12.5 mg Oral Tab Take 1 Tab by mouth daily. Active oxycodone-aceta minophen (PERCOCET) 5-325 mg Oral Tab Take 1 Tab by mouth every 6 hours as needed for Pain. 90 Tab 0 9 Active oxycodone CR (OXYCONTIN) 20 mg Oral Tb12 Take 1 Tab by mouth every 12 hours. 60 Tab 0 9 Active docusate sodium (COLACE) 100 mg Oral Cap Take 1 Cap by mouth 2 times daily. 60 Cap 0 9 Active Family History Relation Name Status Comments Father Alive Mother Alive Social History Tobacco Use Types Packs/Day Years Used Date Smoking Tobacco: Never Alcohol Use Standard Drinks/Week Comments Yes 5 (1 standard drink = 0.6 oz pur e alcohol) has drink every other day Sex and Gender Information Value Date Recorded Sex Assigned at Not on file Legal Sex Male 5:48 AM TITLE I DIRECTOR Gender Identity Not on file Sexual Orientation Not on file Last Filed Vital Signs Vital Sign Reading Time Taken Comments Blood Pressure 98/58 10/01/2009 6:12 AM TITLE I DIRECTOR Pulse 78 10/01/2009 6:12 AM TITLE I DIRECTOR Temperature 37.3 C (99.1 F) 10/01/2009 6:12 AM TITLE I DIRECTOR Respiratory Rate 16 10/01/2009 6:12 AM TITLE I DIRECTOR Oxygen Saturation 97% 10/01/2009 6:12 AM TITLE I DIRECTOR Inhaled Oxygen Concentration - - Weight 98.7 kg (217 lb 8 oz) 09/22/2009 3:58 PM CDT Height 185.4 cm (6' 1 ) 09/22/2009 3:58 PM CDT Body Mass Index 28.7 09/22/2009 3:58 PM CDT Plan of Treatment Health Maintenance Due Date Last Done Comments DTAP/TDAP/TD VACCINES (1 - Tdap) 1976 COLORECTAL SCREENING 2002 Colorectal Cancer Screening 2002 FIT-DNA Q 3 years 2002 FIT/FOBT Q 1 year 2002 Flex Sig/CT Colonography Q 5 years 2002 PNEUMOCOCCAL VACCINE 50+ YEARS (1 of 1 - PCV) 11/14/20 07 ZOSTER VACCINE (1 of 2) 2007 INFLUENZA VACCINE (#1) 2024 RSV VACCINE (60+ or ) (1 - 1-dose 75+ series) 2032 Medical Devices Implanted Type Area Cost Specialist Device Identifier Shelf Expiration Date Model / Serial / Lot Infuse Protein Kit Med [id number] Implanted:Qty: 1 on 09/28/2009 at [facility] Biological N/A: Spine Lumbar [employer]- SOFAMOR DANEK 09/26/2011 [id number] / / [id number] L Loop T-Lif-Cage 10mm, 6 Degrees Implanted:Qty: 2 on 09/28/2009 at [facility] Cage N/A: Spine Lumbar 02/24/2014 -08-31 / / [id number] Description:[email or web address] Nut Hex Mdlr Cross 3/8in [id number] Implanted:Qty: 2 on 09/28/2009 at [facility] Other J&J- DEPUY LAWRENCE [id number] / / Description:LOAD#35-2008 J-Hook Modular Cross 1/4 Johnny [id number] Implanted:Qty: 2 on 09/28/2009 at [facility] Other J&J- DEPUY LAWRENCE 2230-500 / / Description:LOAD#35-2008 Plate Spinal Cross Med 2230-550 Implanted:Qty: 1 on 09/28/2009 at [facility] Plate J&J- DEPUY SP[employer] INC 2230-550 / / Description:LOAD#35-2008 Log [id number] - Depuy Expedium 5.5 Spine Tray - 1 - Johnny Xpdm 5.5 Ti Prebnt 75mm 72-075 Implanted:Qty: 2 on 09/28/2009 at [facility] Johnny N/A: Spine Lumbar J&J- DEPUY [employer] -0 75 / LOAD# 44 / STERILIZE D:SEP 22 Log [id number] - Depuy Expedium 5.5 Spine Tray - 1 - Screw Set Inner 000 Implanted:Qty: 6 on 09/28/2009 at [facility] Screw N/A: Spine Lumbar J&J- MED PROD 0 00 / LOAD# 44 / STERILIZE D:SEP 22 Log [id number] - Depuy Expedium 5.5 Spine Tray - 1 - Screw Exp Poly 6x45mm [id number] Implanted:Qty: 4 on 09/28/2009 at [facility] Screw N/A: Spine Lumbar J&J- [employer] 6 45 / LOAD# 44 / STERILIZE D:SEP 22 Log [id number] - Depuy Expedium 5.5 Spine Tray - 1 - Screw Exp Poly 7x45mm [id number] Implanted:Qty: 2 on 09/28/2009 at [facility] Screw N/A: Spine Lumbar J&J- [employer] 7 45 / LOAD# 44 / STERILIZE D:SEP 22 Screw Fci Hexlobe Set 3230-05-Ss Implanted:Qty: 2 on 09/28/2009 at [facility] Screw J&J- DEPUY [employer] 3230-05-S S / / Description:LOAD#35-2008 Insurance [facility] BLUE ACCESS/TRUE BLUE PPO Advance Directives For more information, please contact: [phone] * Full Code (Latest Code Status on File) Date Activated Date Inactivated Comments 09/28/2009 5:54 PM 10/01/2009 1:59 PM * Full Code Date Activated Date Inactivated Comments 09/28/2009 5:53 PM 09/28/2009 5:54 PM * Full Code Date Activated Date Inactivated Comments 09/28/2009 10:58 AM 09/28/2009 5:53 PM
--- OUTSIDE RECORDS SUMMARY | 2025-01-31 06:41 | XMS_ITS | Continuity of Care Document ---
Author Organization [facility] Address [address] [place] [address] [place] [address] Phone Care Team Providers Care Strip Feeder Name Role Phone Fela Reynolds Unavailable Unavailable Procedures Procedure Date Office/outpatient Visit, Est Visual Field Examination(s) Office/outpatient Visit, Est Fundus Photography W/ Report Office/outpatient Visit, Est Visual Field Examination(s) Office/outpatient Visit, Est Office/outpatient Visit, Est Visual Field Examination(s) Office/outpatient Visit, Est Fundus Photography W/ Report Advance Directives Directive Yes / No Effective Date File Name No Information Encounters Encounter Description Practice Location Reason(s) For Visit Diagnoses Date Provider Providers Copied on Encounter Office/outpat ient Visit, Est [facility], [address] [place] [address] [address], [place], [place], [id number], tel:[phone] [facility] No Information 2-201 0 Gail Pettit [address] , [address], [place], [address], [place]. tel:[phone] [facility], [address] [place] [address] [address], [place], [place], [id number], tel:[phone] [facility] No Information 0-200 9 Gail Pettit [address] , [address], [place], [address], [place]. tel:[phone] Referring Provider: Fela Sandoval, [address], [place], [facility]. tel:[phone] Office/outpat ient Visit, [facility], [address] [place] [address] [address], [place], [place], [id number], tel:[phone] [facility] No Information Mar-1 0-200 9 Gail Chahal. [address] , [address], [place], [address], [place]. tel:[phone] Referring Provider: Fela Sandoval, [address], [place], [facility]. tel:[phone] Office/outpat ient Visit, [facility], [address] [place] [address] [address], [place], [place], [id number], tel:[phone] [facility] No Information Nov-0 4-200 8 [address] , [address], [place], [address], [place]. tel:[phone] [facility], [address] [place] [address] [address], [place], [place], [id number], [place] tel:[phone] [facility] No Information Ryan-2 3-200 8 [address] , [address], [place], [facility], [place]. tel:[phone] Referring Provider: Fela Sandoval, [address], [place], [facility]. tel:[phone] Office/outpat ient Visit, [facility], [address] [place] [address] [address], [place], [place], [id number], [place] tel:[phone] [facility] No Information Feb-1 2-200 8 [address] , [address], [place], [facility], [place]. tel:[phone] Office/outpat ient Visit, [facility], [id number] [place] [address] [address], [place], [place], [id number], tel:[phone] [facility] No Information Oct-0 9-200 7 Gail [address] [facility] [place] , [address], [place], [facility], . tel:[phone] [facility], [address] [place] [address] [address], [place], [place], [id number], tel:[phone] [facility] No Information Ryan-2 5-200 7 Gail [address] [facility] , [address], [place], [facility], . tel:[phone] Referring Provider: Emeka Moreland [facility] [address], [place], [facility]. tel:[phone] Office/outpat ient Visit, [facility], [address] [place] [address] [address], [place], [place], [id number], tel:[phone] [facility] No Information Feb-1 0-200 7 Gail [address] [facility] , [address], [place], [facility], . tel:[phone] Referring Provider: Emeka [facility] [address], [place], [facility]. tel:[phone] Family History Family Member Type Diagnosis Age At Onset No Information Payers Payer name Insurance type Covered republican ID Authoriza tion(s) No Information Social History Type Description Quantity Date Captured [...]
--- OUTSIDE RECORDS SUMMARY | 2025-01-31 06:41 | XMS_ITS | Clinical Summary ---
Author Organization [facility] Address [address] [place] [address] Phone Care Team Providers Care Sole Leveling Machine Operator Name Role Phone Ranjan Darby DO Primary Care Provider [phone] Allergies No known active allergies Medications Medication Sig Dispensed Refills Start Date End Date Status allopurinol (ZYLOPRIM) 300 MG tablet Take 300 mg by mouth 1 (one) time each day 12/26/2021 Active amLODIPine (NORVASC) 5 MG tablet Take 5 mg by mouth 1 (one) time each day 12/26/2021 Active atorvastatin (LIPITOR) 10 MG tablet Take 10 mg by mouth 1 (one) time each day 12/24/2021 Active chlorthalidone (HYGROTON) 25 MG tablet Take 25 mg by mouth 1 (one) time each day 12/27/2021 Active irbesartan (AVAPRO) 300 MG tablet Take 300 mg by mouth 1 (one) time each day 12/12/2021 Active omega-3 acid ethyl esters (LOVAZA) 1 g capsule Take 1 g by mouth 2 (two) times a day 10/17/2021 Active fluticasone (VERAMYST) 27.5 MCG/SPRAY nasal spray Administer 2 sprays into each nostril 1 (one) time each day Active Cholecalciferol (Vitamin D3) 25 MCG (1000 UT) capsule Take by mouth Acti ve TURMERIC PO Take by mouth Active aspirin (ST ZAY) 81 MG EC tablet Take 81 mg by mouth 1 (one) time each day Active Multiple Vitamins-Minerals (CENTRUM SILVER 50+MEN PO) Take by mouth Active famotidine (PEPCID) 20 MG tablet Take by mouth nightly Active Active Problems Problem Noted Date Diagnosed Date Chronic kidney disease stage 3B 01/18/2022 Essential hypertension 01/18/2022 Dyslipidemia 01/18/2022 Immunizations Name Administration Dates Next Due Influenza TIV (IM) 01/18/2022(Deferred: Patient Refused) Family History Medical History Relation Comments Kidney disease Neg Hx Social History Tobacco Use Types Packs/Day Years Used Date Smoking Tobacco: Former Smokeless Tobacco: Never Alcohol Use Standard Drinks/Week Comments Yes 10 (1 standard drink = 0.6 oz pu re alcohol) Sex and Gender Information Value Date Recorded Sex Assigned at Not on file Gender Identity Not on file Sexual Orientation Not on file Last Filed Vital Signs Vital Sign Reading Time Taken Comments Blood Pressure 116/72 05/18/2022 10:23 AM CDT Pulse 84 05/18/2022 10:23 AM CDT Temperature 36.8 C (98.3 F) 05/18/2022 10:23 AM CDT Respiratory Rate - - Oxygen Saturation - - Inhaled Oxygen Concentration - - Weight 98 kg (216 lb) 05/18/2022 10:23 AM CDT Height 188 cm (6' 2 ) 05/18/2022 10:23 AM CDT Body Mass Index 27.73 05/18/2022 10:23 AM CDT Plan of Treatment Health Maintenance Due Date Last Done Comments Pneumococcal PPSV23/PCV13 65 + Years / Low and Medium Risk (1 of 4 - PCV) 2022 Influenza Vaccine (#1) 2024 Care Teams Sole Leveling Machine Operator Relationship Specialty Start Date End Date Ranjan Darby DO [address] [place] [address] PCP - General Internal Medicine 01/02/22
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
[2025-01-31 07:31] LABS: Basophils Absolute Auto 0.1 K/mm3 (0.0-0.1); Basophils Percent Auto 1.2 % (0.2-1.2); Eosinophils Absolute Auto 0.2 K/mm3 (0-0.3); Eosinophils Percent Auto 2.2 % (0-4.4); Hematocrit 40.4 % (42.0-52.0); Hemoglobin 13.6 g/dL (14.0-18.0); Immature Granulocyte Absolute 0.03 K/mm3 (0.00-0.031); Immature Granulocyte Percent A 0.4 % (0-0.5); Lymphocytes Absolute Auto 1.97 K/mm3 (0.9-3.2); Lymphocytes Percent Auto 25.8 % (18.3-44.2); Mean Corpuscular HGB Conc 33.7 g/dl (32-36); Mean Corpuscular Hemoglobin 29.9 pg (26-34); Mean Corpuscular Volume 88.8 fl (80-100); Mean Platelet Volume 8.7 fl (7.4-10.4); Monocytes Absolute Auto 0.9 K/mm3 (0.1-0.6); Monocytes Percent Auto 11.6 % (2.6-8.5); Neutrophils Absolute Auto 4.5 K/mm3 (1.3-6.7); Neutrophils Percent Auto 58.8 % (45.5-73.1); Platelet Count Result 497 k/mm3 (150-375); Red Blood Count 4.55 M/mm3 (4.6-6.20); Red Cell Distribution Width 13.3 % (11.5-14.5); White Blood Count 7.6 K/mm3 (4.5-10.0)
[2025-01-31 07:43] LABS: Alanine Aminotransferase 23 U/L (6-50); Albumin Level 4.6 g/dL (3.5-5.1); Alkaline Phosphatase 209 U/L (38-126); Anion Gap 10 mmol/L (4-12); Aspartate Amino Transferase 31 U/L (17-59); Bilirubin,Total 0.7 mg/dL (0.2-1.3); Blood Urea Nitrogen 25 mg/dL (9-20); Calcium 9.7 mg/dL (8.4-10.2); Carbon Dioxide 31 mmol/L (22-30); Chloride 98 mmol/L (98-107); Cholesterol 149 mg/dL (0-200); Estimated Glomerular Filt Rate 45; Glucose 112 mg/dL (65-110); HDL Direct 54 mg/dL; Sodium 139 mmol/L (137-145); Triglycerides 189 mg/dL (<150)
[2025-01-31 08:06] LABS: LDL Cholesterol Direct 50 mg/dL
[2025-01-31 09:41] LABS: Hemoglobin A1C 6.2 % (<5.7)
== END 2025-01-31 06:39 | disposition home or self-care (01) ==
LOC: ANHLAB 06:39
PROVIDERS: PCP Nurse Practitioner Family; Visit Provider Nurse Practitioner Family
DX: E79.0 Hyperuricemia without signs of inflammatory arthritis and tophaceous disease (principal); E78.5 Hyperlipidemia, unspecified; R73.03 Prediabetes; M15.0 Primary generalized (osteo)arthritis; I12.9 Hypertensive chronic kidney disease with stage 1 through stage 4 chronic kidney disease, or unspecified chronic kidney disease; N18.30 Chronic kidney disease, stage 3 unspecified
CPT/HCPCS: 36415; 80053; 80061; 83036; 85025

== ENCOUNTER 2025-07-03 07:02 | Outpatient (CLI) | payer BC, SELFPAY ==
--- OUTSIDE RECORDS SUMMARY | 2025-07-03 07:06 | XMS_ITS | Clinical Summary ---
Author Organization [facility] Address [address] [place] [address] Phone Care Team Providers Care Medical Transcriber Name Role Phone Jaylene Ovalles APRN, CNP Primary Care Provider + Medications aspirin 81 MG Chewable Tablet Take 81 mg by mouth daily. Active Social History Tobacco Use Types Packs/Day Years Used Date Smoking Tobacco: Never Smokeless Tobacco: Never Tobacco Cessation:Counseling Given: Not Answered Alcohol Use Standard Drinks/Week Comments Yes 0 (1 standard drink = 0.6 oz pure alcohol) 1 glass of rum a day, most days Sex and Gender Information Value Date Recorded Sex Assigned at Male 01/11/2025 12:00 AM SUBSTANCE ABUSE THERAPIST Legal Sex Male 10:27 AM SUBSTANCE ABUSE THERAPIST Gender Identity Male 01/11/2025 12:00 AM SUBSTANCE ABUSE THERAPIST Sexual Orientation Not on file Last Filed Vital Signs Vital Sign Reading Time Taken Comments Blood Pressure 167/90 01/11/2025 2:00 AM SUBSTANCE ABUSE THERAPIST Pulse 72 01/11/2025 2:00 AM SUBSTANCE ABUSE THERAPIST Temperature 36.5 C (97.7 F) 01/10/2025 11:52 PM SUBSTANCE ABUSE THERAPIST Respiratory Rate 17 01/10/2025 11:52 PM SUBSTANCE ABUSE THERAPIST Oxygen Saturation 100% 01/11/2025 2:00 AM SUBSTANCE ABUSE THERAPIST Inhaled Oxygen Concentration - - Weight 104.3 kg (230 lb) 01/10/2025 11:52 PM SUBSTANCE ABUSE THERAPIST Height 182.9 cm (6') 01/10/2025 11:52 PM SUBSTANCE ABUSE THERAPIST Body Mass Index 31.19 01/10/2025 11:52 PM SUBSTANCE ABUSE THERAPIST Plan of Treatment Health Maintenance Due Date Last Done Comments Hepatitis C Virus (HCV) Screening 1957 Cologuard 2002 Colonoscopy 2002 Colorectal Cancer Screening 2002 Immunochemical Fecal Occult Blood 2002 Pneumococcal Immunization (5 0+ years) (1 of 1 - PCV) 2007 Zoster Immunization (1 of 2) 2007 PSA Discussion 2012 SARS-COV-2 Immunization (4 - season) 2024 11/12/2021, 02/10/2021, 01/20/2021 Influenza Immunization (#1) 2025 Respiratory Syncytial Virus (RSV) Immunization (Adult) (1 - 1-dose 75+ series) 2032 DTaP/Tdap/Td Immunization Discontinued 07/29/2024 TdaP Immunization Completed 07/29/2024 Hepatitis B Immunization Aged Out No longer eligible based on patient's age to complete this topic Human Papillomavirus (HPV) Immunization Aged Out No longer eligible based on patient's age to complete this topic Meningococcal Immunization (ACWY) Aged Out No longer eligible based on patient's age to complete this topic Rotavirus Immunization Aged Out No lo nger eligible based on patient's age [place] [address] [place] [address] GENERIC Care Teams Medical Transcriber Relationship Specialty Start Date End Date Jaylene Ovalles APRN, DIRECTOR OF CARDIOLOGY SERVICE LINE [address] [facility] [address] [place] [address] PCP - General Advanced Practice Nurse 01/11/25
--- OUTSIDE RECORDS SUMMARY | 2025-07-03 07:07 | XMS_ITS | Clinical Summary ---
Author Organization [facility] Address [address] [place] [address] Phone Care Team Providers Care Ring Conductor Name Role Phone Unavailable Primary Care Provider [...] on file Legal Sex Male 5:48 AM SQL SERVER DBA Gender Identity Not on file Sexual Orientation Not on file Last Filed Vital Signs Vital Sign Reading Time Taken Comments Blood Pressure 98/58 10/01/2009 6:12 AM SQL SERVER DBA Pulse 78 10/01/2009 6:12 AM SQL SERVER DBA Temperature 37.3 C (99.1 F) 10/01/2009 6:12 AM SQL SERVER DBA Respiratory Rate 16 10/01/2009 6:12 AM SQL SERVER DBA Oxygen Saturation 97% 10/01/2009 6:12 AM SQL SERVER DBA Inhaled Oxygen Concentration - - Weight 98.7 kg (217 lb 8 oz) 09/22/2009 3:58 PM CDT Height 185.4 cm (6' 1) 09/22/2009 3:58 PM CDT Body Mass Index [...] (1 of 2) 2007 INFLUENZA VACCINE (#1) 2025 RSV VACCINE (60+ or ) (1 - 1-dose 75+ series) 2032 Medical Devices Implanted Type Area Composite Laminator Device Identifier Shelf Expiration Date Model / Serial / Lot Infuse Protein Kit Med [id number] Implanted:Qty: 1 on 09/28/2009 at [facility] Biological N/A: Spine Lumbar MEDTRONIC- SOFAMOR DANEK 09/26/2011 [id number] / / [id number] L Loop T-Lif-Cage 10mm, 6 Degrees Implanted:Qty: 2 on 09/28/2009 at [facility] Cage N/A: Spine Lumbar 02/24/2014 -08-31 / / [id number] Description:[employer] Nut Hex Mdlr Cross 3/8in [id number] Implanted:Qty: 2 on 09/28/2009 at [facility] Other J&J- DEPUY LAWRENCE [id number] / / Description:LOAD#35-2008 J-Hook Modular Cross 1/4 Johnny [id number] Implanted:Qty: 2 on 09/28/2009 at [facility] Other J&J- DEPUY LAWRENCE 2230-500 / / Description:LOAD#35-2008 Plate Spinal Cross Med 2230-550 Implanted:Qty: 1 on 09/28/2009 at [facility] Plate J&J- DEPUY SPINE INC 2230-550 / / Description:LOAD#35-2008 Log [id number] - Depuy Expedium 5.5 Spine Tray - 1 - Johnny Xpdm 5.5 Ti Prebnt 75mm 72-075 Implanted:Qty: 2 on 09/28/2009 at [facility] Johnny N/A: Spine Lumbar J&J- DEPUY SPINE INC -0 75 / LOAD# 44 / STERILIZE D:SEP 22 Log [id number] - Depuy Expedium 5.5 Spine Tray - 1 - Screw Set Inner 000 Implanted:Qty: 6 on 09/28/2009 at [facility] Screw N/A: Spine Lumbar J&J- MED PROD 0 00 / LOAD# 44 / STERILIZE D:SEP 22 Log [id number] - Depuy Expedium 5.5 Spine Tray - 1 - Screw Exp Poly 6x45mm [id number] Implanted:Qty: 4 on 09/28/2009 at [facility] Screw N/A: Spine Lumbar J&J- DEPUY SPINE INC 6 45 / LOAD# 44 / STERILIZE D:SEP 22 Log [id number] - Depuy Expedium 5.5 Spine Tray - 1 - Screw Exp Poly 7x45mm [id number] Implanted:Qty: 2 on 09/28/2009 at [facility] Screw N/A: Spine Lumbar J&J- DEPUY SPINE INC 7 45 / LOAD# 44 / STERILIZE D:SEP 22 Screw Custodial Hexlobe Set 3230-05-Ss Implanted:Qty: 2 on 09/28/2009 at [facility] Screw J&J- DEPUY SPINE INC 3230-05-S S / / Description:LOAD#35-2008 Insurance [facility] BLUE ACCESS/TRUE BLUE PPO Advance Directives For more information, please contact: [phone] * Full Code (Latest Code Status on File) Date Activated Date Inactivated Comments 09/28/2009 5:54 PM 10/01/2009 1:59 PM * Full Code Date Activated Date Inactivated Comments 09/28/2009 5:53 PM 09/28/2009 5:54 PM * Full Code Date Activated Date Inactivated Comments 09/28/2009 10:58 AM 09/28/2009 5:53 PM
--- OUTSIDE RECORDS SUMMARY | 2025-07-03 07:08 | XMS_ITS | Continuity of Care Document ---
Author Organization [facility] Address [address] [place] [address] [place] [address] Phone Care Team Providers Care Rotary Pump Operator Name Role Phone Fela Reynolds Unavailable Unavailable [...] Copied on Encounter Office/outpat ient Visit, Est [facility], [address] [place] [address] [address], [place], [place], [id number], tel:[phone] [facility] No Information 2-201 0 Gail Pettit [address] , [address], [place], [address], [place]. tel:[phone] [facility], [address] [place] [address] [address], [place], [place], [id number], tel:[phone] [facility] No Information 0-200 9 G[address] , [address], [place], [address], [place]. tel:[phone] Referring Provider: Fela Sandoval, [address], [place], [place], [facility]. tel:[phone] Office/outpat ient Visit, [facility], [address] [place] [address] [address], [place], [place], [id number], tel:[phone] [facility] No Information Mar-1 0-200 9 Gail Chahal. [address] , [address], [place], [address], [place]. tel:[phone] Referring Provider: Fela Sandoval, [address], [place], [place], [facility]. tel:[phone] Office/outpat ient Visit, [facility], [address] [place] [address] [address], [place], [place], [id number], tel:[phone] [facility] No Information Nov-0 4-200 8 [address] , [address], [place], [address], [place]. tel:[phone] [facility], [address] [place] [address] [address], [place], [place], [id number], [place] tel:[phone] [facility] No Information Ryan-2 3-200 8 [address] , [address], [place], [place], [facility], [place]. tel:[phone] Referring Provider: Fela Sandoval, [address], [place], [facility]. tel:[phone] Office/outpat ient Visit, [facility], [address] [place] [address] [address], [place], [place], [id number], [place] tel:[phone] [facility] No Information Feb-1 2-200 8 [address] , [address], [place], [facility], [place]. tel:[phone] Office/outpat ient Visit, [facility], [address] [place] [address] [address], [place], [place], [id number], tel:[phone] [facility] No Information Oct-0 9-200 7 [address] [facility] , [address], [place], [facility], . tel:[phone] [facility] Eye [facility], [address] [place] [address] [address], [place], [place], [id number], tel:[phone] [facility] No Information Ryan-2 5-200 7 [address] [facility] , [address], [place], [facility], . tel:[phone] Referring Provider: Emeka Moreland [facility] [address], [place], [facility]. tel:[phone] Office/outpat ient Visit, [facility], [address] [place] [address] [address], [place], [place], [id number], tel:[phone] [facility] No Information Feb-1 0-200 7 [address] [facility] , [address], [place], [facility], . tel:[phone] Referring Provider: Emeka Moreland [facility] [address], [place], [facility]. tel:[phone] Family History Family Member Type Diagnosis Age [...]
--- OUTSIDE RECORDS SUMMARY | 2025-07-03 07:08 | XMS_ITS | Clinical Summary ---
Author Organization [facility] Address [address] [place] [phone] Phone Care Team Providers Care Adjuster Arbitrator Name Role Phone Ranjan Darby DO Primary Care Provider [phone] Allergies No known active allergies Medications allopurinol (ZYLOPRIM) 300 MG tablet Take 300 mg by mouth 1 (one) time each day 2 Active amLODIPine (NORVASC) 5 MG tablet Take 5 mg by mouth 1 (one) time each day 2 Active atorvastatin (LIPITOR) 10 MG tablet Take 10 mg by mouth 1 (one) time each day 2 Active chlorthalidone (HYGROTON) 25 MG tablet Take 25 mg by mouth 1 (one) time each day 2 Active irbesartan (AVAPRO) 300 MG tablet Take 300 mg by mouth 1 (one) time each day 2 Active omega-3 acid ethyl esters (LOVAZA) 1 g capsule Take 1 g by mouth 2 (two) times a day 1 Active fluticasone (VERAMYST) 27.5 MCG/SPRAY nasal spray Administer 2 sprays into each nostril 1 (one) time each day Active Cholecalciferol (Vitamin D3) 25 MCG (1000 UT) capsule Take by mouth Active TURMERIC PO Take by mouth Acti ve aspirin (ST ZAY) 81 MG EC tablet Take 81 mg by mouth 1 (one) time each day Active Multiple Vitamins-Minera ls (CENTRUM SILVER 50+MEN PO) Take by mouth Active famotidine (PEPCID) 20 MG tablet Take by mouth nightly Active Active Problems Problem Noted Date Diagnosed Date Chronic kidney disease stage 3B 01/18/2022 Essential hypertension 01/18/2022 Dyslipidemia 01/18/2022 Immunizations Immunization Administration Dates Next Due Influenza TIV (IM) [...] at Not on file Legal Sex Male 11:[address] [facility] Gender Identity Not on file Sexual Orientation [...] 10:23 AM CDT Height 188 cm (6' 2) 05/18/2022 10:23 AM CDT Body Mass Index 27.73 05/18/2022 10:23 AM CDT Plan of Treatment Health Maintenance Due Date Last Done Comments Pneumococcal PPSV23/PCV13 65 + Years / Low and Medium Risk (1 of 2 - PCV) 2007 Influenza Vaccine (#1) 2025 Insurance [facility] Care Teams Adjuster Arbitrator Relationship Specialty Start Date End Date Ranjan Darby DO [address] [place] [address] PCP - General Internal Medicine 01/02/22
[2025-07-03 08:28] LABS: Alanine Aminotransferase 28 U/L (6-50); Albumin Level 4.2 g/dL (3.5-5.1); Alkaline Phosphatase 124 U/L (38-126); Anion Gap 10 mmol/L (4-12); Aspartate Amino Transferase 43 U/L (17-59); Bilirubin,Total 0.7 mg/dL (0.2-1.3); Blood Urea Nitrogen 27 mg/dL (9-20); Calcium 9.2 mg/dL (8.4-10.2); Carbon Dioxide 28 mmol/L (22-30); Chloride 101 mmol/L (98-107); Estimated Glomerular Filt Rate 43; Glucose 113 mg/dL (65-110); Potassium 4.1 mmol/L (3.4-5.0); Sodium 139 mmol/L (137-145); Total Protein 7.3 g/dL (6.3-8.2); Uric Acid 10.2 mg/dL (3.5-8.5)
[2025-07-03 16:37] LABS: Hemoglobin A1C 6.1 % (<5.7)
== END 2025-07-03 07:03 | disposition home or self-care (01) ==
PROVIDERS: PCP Nurse Practitioner Family; Visit Provider Nurse Practitioner Family
DX: E78.00 Pure hypercholesterolemia, unspecified (principal); E78.5 Hyperlipidemia, unspecified; R73.03 Prediabetes; M15.0 Primary generalized (osteo)arthritis; I12.9 Hypertensive chronic kidney disease with stage 1 through stage 4 chronic kidney disease, or unspecified chronic kidney disease; N18.30 Chronic kidney disease, stage 3 unspecified
CPT/HCPCS: 36415; 80053; 83036; 84550

== ENCOUNTER 2025-08-18 09:06 | Outpatient (CLI) | payer BC, SELFPAY ==
--- OUTSIDE RECORDS SUMMARY | 2025-08-18 09:48 | XMS_ITS | Clinical Summary ---
Author Organization [facility] Address [address] [place] [address] Phone Care Team Providers Care Golf Course Architect Name Role Phone Jaylene Ovalles APRN, CNP [...] Sex Assigned at Male 01/11/2025 12:00 AM MINER Legal Sex Male 10:27 AM MINER Gender Identity Male 01/11/2025 12:00 AM MINER Sexual Orientation Not on file Last Filed Vital Signs Vital Sign Reading Time Taken Comments Blood Pressure 167/90 01/11/2025 2:00 AM MINER Pulse 72 01/11/2025 2:00 AM MINER Temperature 36.5 C (97.7 F) 01/10/2025 11:52 PM MINER Respiratory Rate 17 01/10/2025 11:52 PM MINER Oxygen Saturation 100% 01/11/2025 2:00 AM MINER Inhaled Oxygen Concentration - - Weight 104.3 kg (230 lb) 01/10/2025 11:52 PM MINER Height 182.9 cm (6') 01/10/2025 11:52 PM MINER Body Mass Index 31.19 01/10/2025 11:52 PM MINER Plan of Treatment Health Maintenance Due Date Last Done Comments Hepatitis C Virus (HCV) Screening 1957 Cologuard 2002 Colonoscopy 2002 Colorectal Cancer Screening 2002 Immunochemical Fecal Occult Blood 2002 Pneumococcal Immunization (5 0+ years) (1 of 1 - PCV) 2007 Zoster Immunization (1 of 2) 2007 PSA Discussion 2012 Influenza Immunization (#1) 2025 SARS-COV-2 Immunization ( - season) 2025 11/12/2021, 02/10/2021, 01/20/2021 Respiratory Syncytial Virus (RSV) [...] patient's age to [place] [address] [place] [address] GENERIC Care Teams Golf Course Architect Relationship Specialty Start Date End Date Jaylene Ovalles APRN, RESERVOIR ENGINEERING MANAGER [address] [facility] [address] [place] [address] PCP - General Advanced Practice Nurse 01/11/25
--- OUTSIDE RECORDS SUMMARY | 2025-08-18 09:48 | XMS_ITS | Clinical Summary ---
Author Organization [facility] Address [address] [place] [address] Phone Care Team Providers Care Lead Nitrate Processor Name Role Phone Unavailable Primary Care Provider [...] on file Legal Sex Male 5:48 AM BEREAVEMENT COORDINATOR Gender Identity Not on file Sexual Orientation Not on file Last Filed Vital Signs Vital Sign Reading Time Taken Comments Blood Pressure 98/58 10/01/2009 6:12 AM BEREAVEMENT COORDINATOR Pulse 78 10/01/2009 6:12 AM BEREAVEMENT COORDINATOR Temperature 37.3 C (99.1 F) 10/01/2009 6:12 AM BEREAVEMENT COORDINATOR Respiratory Rate 16 10/01/2009 6:12 AM BEREAVEMENT COORDINATOR Oxygen Saturation 97% 10/01/2009 6:12 AM BEREAVEMENT COORDINATOR Inhaled Oxygen Concentration - - Weight 98.7 [...] series) 2032 Medical Devices Implanted Type Area End Frazer Device Identifier Shelf Expiration Date Model / Serial / Lot Infuse Protein Kit Med [id number] Implanted:Qty: 1 on 09/28/2009 at [facility] Biological N/A: Spine Lumbar [employer]- SOFAMOR DANEK 09/26/2011 [id number] / / [id number] L Loop T-Lif-Cage 10mm, 6 Degrees Implanted:Qty: 2 on 09/28/2009 at [facility] Cage N/A: Spine Lumbar 02/24/2014 -08-31 / / [id number] Description:[employer] Nut Hex Mdlr Cross 3/8in [id number] Implanted:Qty: 2 on 09/28/2009 at [facility] Other J&J- DEPUY LAWRENCE [id number] / / Description:LOAD#35-2008 J-Hook Modular Cross 1/4 Johnny [id number] Implanted:Qty: 2 on 09/28/2009 at [facility] Other J&J- DEPUY LAWRENCE 2230-500 / / Description:LOAD#35-2008 Plate Spinal Cross Med 2230-550 Implanted:Qty: 1 on 09/28/2009 at [facility] Plate J&J- DEPUY SPINE INC 2230-550 / / Description:LOAD#35-2008 Log [id number] - Depuy Expedium 5.5 Spine Tray - 1 - Johnny Xpdm 5.5 Ti Prebnt 75mm 72-075 Implanted:Qty: 2 on 09/28/2009 at [facility] Johnny N/A: Spine Lumbar J&J- DEPUY SP[employer] INC -0 75 / LOAD# 44 / STERILIZE D:SEP 22 Log [id number] - Depuy Expedium 5.5 Spine Tray - 1 - Screw Set Inner 000 Implanted:Qty: 6 on 09/28/2009 at [facility] Screw N/A: Spine Lumbar J&J- MED PROD 0 00 / LOAD# 44 / STERILIZE D:SEP 22 Log [id number] - Depuy Expedium 5.5 Spine Tray - 1 - Screw Exp Poly 6x45mm [id number] Implanted:Qty: 4 on 09/28/2009 at [facility] Screw N/A: Spine Lumbar J&J- DEPUY SPINE INC 6 45 / LOAD# 44 / STERILIZE D:SEP 22 Log [id number] - Depuy Expedium 5.5 Spine Tray - 1 - Screw Exp Poly 7x45mm [id number] Implanted:Qty: 2 on 09/28/2009 at [facility] Screw N/A: Spine Lumbar J&J- DEPUY SPINE INC 7 45 / LOAD# 44 / STERILIZE D:SEP 22 Screw Custodial Hexlobe Set 3230-05-Ss Implanted:Qty: 2 on 09/28/2009 at [facility] Screw J&J- DEPUY SPINE INC 3230-05-S S / / Description:LOAD#35-2008 Insurance [facility] BLUE ACCESS/TRUE BLUE PPO Advance Directives For more information, please contact: [phone] * Full Code (Latest Code Status on File) Date Activated Date Inactivated Comments 09/28/2009 5:54 PM 10/01/2009 1:59 PM * Full Code Date Activated Date Inactivated Comments 09/28/2009 5:53 PM 09/28/2009 5:54 PM * Full Code Date Activated Date Inactivated Comments 09/28/2009 10:58 AM 09/28/2009 5:53 PM
--- OUTSIDE RECORDS SUMMARY | 2025-08-18 09:49 | XMS_ITS | Clinical Summary ---
Author Organization [facility] Address [address] [place] [address] Phone Care Team Providers Care Straddle Bug Driver Name Role Phone Ranjan Darby DO Primary Care Provider [phone] Allergies No known active allergies Medications allopurinol [...] on file Legal Sex Male 11:10 AM [facility] Gender Identity Not on file Sexual [...] PCV) 2007 Influenza Vaccine (#1) 2025 Insurance [facility] Care Teams Straddle Bug Driver Relationship Specialty Start Date End Date Ranjan Darby DO [address] [place] [address] PCP - General Internal Medicine 01/02/22
--- NOTE | 2025-09-01 16:04 | WPDHOMESLEEP ---
Sleep Study - Home Unattended Date of Study: 08/18/25 Ordering Provider: Jaylene Ovalles APRN Interpreting Provider: Keara Bautista, DO Home Sleep Study Type: Watch PAT Height: 1.83 m Weight: 99.79 kg Body Mass Index: 29.8 Neck Circumference (inches): 18 [place]: 6 Reason for Sleep Study Daytime hypersomnia Sleep History The patient is a 69-year-old male that had a sleep study ordered by his primary care for evaluation of sleep apnea. He admits to excessive daytime sleepiness. He does snore loudly. He denies having interruptions in breathing while asleep. He does have trouble breathing on his back. He does have morning headaches. He does have a dry or sore mouth / throat in the morning. He denies nocturnal heartburn. He denies nocturia. He denies having difficulty falling asleep. He does have difficulty staying asleep. He denies having difficulty returning to sleep if he wakes up throughout the night. He denies any hypnotic or sedative use. He denies feeling anxious about sleep. He does feel tired or sleepy during the day. He does feel tired in the morning. He denies having the urge to fall asleep during the day. He denies feeling drowsy while driving. He denies sleep paralysis, cataplexy and hypnagogic/ hypnopompic hallucinations. He denies clenching or grinding his teeth. He denies kicking or jerking his legs excessively. He does have a restless feeling in his legs that does cause an urge to move his legs. It is not worse with rest but it does get better with activities. It only occurs in the evening or at night time. He goes to bed at 10:00 p.m. every night. He takes him 15 minutes to fall asleep on work days and 30 minutes on his days off. He gets 7 hours of sleep per night. His sleep is somewhat restorative on days off. He denies taking any planned naps. He denies dream enactment behavior. He denies sleep walking. He consumes 1-2 cups of caffeinated beverage per day. He consumes 1 alcoholic beverage 5-7 nights per week. He denies tobacco use. He does exercise 5-7 nights per week. [facility] Past Medical History Medical History Hypertension Family History Family History Sibling Patient's sister is in good health Patient's brother is in good health Mother Family history of arthritis Father Family history of diabetes mellitus in first degree relative Diabetes mellitus Social History Social History Smoking packs per day: 1 Smoking cigarettes per day: 20.0 Years smoked: 28 Smoking pack-years: 28.00 Smoking status: Former smoker Tobacco type: cigarettes Second hand tobacco smoke exposure: Yes Smoking end date: 11/26/85 Alcohol intake: current Drinks per week: 7 Alcohol use details: 1 RUM DAILY Substance use: never Substance use type: does not use Do You Feel Safe in your Home?: Yes Lack of Transportation: No Lack of Food: Never True Current Housing: I Have Housing Concerned About Future Housing: No Difficulty Paying Gas/Electric Bills: No Difficulty Paying for Meds: No Currently Unemployed: No Education: High School Diploma/GED Difficulty w/ Childcare or Family Care: No Living arrangements: with family Occupation/Education: occupation Gender identity (if verbalized by the patient): Male Sexual Orientation (if Verbalized by the Patient): Straight or Heterosexual Spiritual care concerns: No Agree to blood products: Yes Medications Home Medications ?Medication ?Instructions ?Recorded ?Confirmed ?Type aspirin 81 mg chewable tablet 81 mg PO DAILY 10/22/19 07/06/25 History famotidine 20 mg tablet 20 mg PO DAILY 07/08/21 07/06/25 History mjbyhrfu-vw-snast 300 mcg-K 60 1 tablet PO DAILY 07/08/21 07/06/25 History mcg-lycop 600 mcg-lutein 300 mcg tablet (Centrum Silver Men) turmeric root extract 500 mg 500 mg PO DAILY 07/08/21 07/06/25 History capsule fluticasone propionate 50 2 spray intranasal DAILY #16 grams 01/02/23 07/06/25 Rx mcg/actuation nasal spray,suspension (Flonase Allergy Relief) cyclobenzaprine 10 mg tablet 10 mg PO .at night PRN muscle 05/08/24 07/06/25 Rx spasm #20 tabs allopurinol 100 mg tablet 100 mg PO DAILY #90 tabs 07/06/25 07/06/25 Rx amlodipine 5 mg tablet 5 mg PO DAILY #90 tabs 07/06/25 07/06/25 Rx atorvastatin 40 mg tablet See Rx Instructions .Route 07/06/25 07/06/25 Rx .COMPLEX #90 tabs chlorthalidone 25 mg tablet See Rx Instructions .Route 07/06/25 07/06/25 Rx .COMPLEX #90 tabs duloxetine 60 mg capsule,delayed 60 mg PO DAILY #90 caps 07/06/25 07/06/25 Rx release indomethacin 50 mg capsule See Rx Instructions .Route 07/06/25 07/06/25 Rx .COMPLEX #90 caps irbesartan 300 mg tablet See Rx Instructions .Route 07/06/25 07/06/25 Rx .COMPLEX #90 tabs omega 9-qdd-ktg-fish oil 1,200 mg cap PO 07/06/25 07/06/25 History (144 mg-216 mg) capsule (Fish Oil) Sleep Procedure The sleep study was completed using [employer] a technically adequate device with seven channels: peripheral arterial tone, actigraphy, body position, snore, respiratory movement, pulse oximetry, sleep staging, and heart rate. Prior to using the device, the patient received verbal and written instructions for its application and was provided with the help desk phone number for additional telephonic instruction with 24-hour availability of qualified personnel to answer questions. The study was scored using CMS guidelines. Sleep Architecture The total recording time is 7 hrs, 50 min. The total sleep time is 7 hrs, 22 min. Sleep latency is 13 minutes. REM latency is 43 minutes. The patient had 4 episodes of waking. Sleep architecture shows 23.3% deep sleep, 48.5% light sleep, and (as % Total Sleep Time) showed NREM (Light 48.5%; Deep 23.3%), and a 28.2% stage REM. The patient spent 91.6% of total sleep time in the supine position. Sleep efficiency was 94.04. Respiratory Analysis The overall AHI (pAHI 4%:) is 10.1. The overall AHI (pAHI 3%:) is 14.1. The central AHI is 2.9. The AHI was 8.3 in NREM and 29.1 in REM sleep. The AHI was 14.8 in Supine and 6.5 in Non-supine sleep. Percent of [place] respirations is 0.0. Oximetry Data The oxygen desaturation index (ADRIA 4%:) is 8.2. The mean saturation is 93%, and the lowest saturation is 86%. Time spent with saturation < 88% is 1.9 minutes. Snoring Profile Snoring average intensity is 42 dB. The patient snored above 45 decibels for 67.5 minutes, 15.3% of sleep time. Cardiac Profile The average pulse rate is 62 beats per minutes. The lowest pulse rate is 45 bpm. The highest pulse rate reported is 92 bpm. Atrial fibrillation was not detected. Premature beats occur 0.7 per minute. Assessment and Plan Assessment and Plan (1) DOE (obstructive sleep apnea): Code(s): G47.33 - Obstructive sleep apnea (adult) (pediatric) Status: Acute Assessment and Plan: The patient had an overall AHI of 10.1 with desaturation down to 86%. This is consistent with mild sleep apnea. Due to the patient's hypertension, he qualifies for treatment. I recommend that the patient be prescribed AutoPAP 5-15 cm H2O, CPAP mask/filters/tubing and heated humidity. A mandibular advancement device is also an acceptable treatment option. This should be used with all episodes of sleep.? Compliance should be reviewed within 31-90 days of starting therapy for usage greater than 4 hours per night greater than 70% of the nights. The patient should be asked about symptoms such as?excessive daytime sleepiness, quality of sleep, decreased nocturia, increased?mental functioning such as memory, mood, and concentration. The patient's sleep history is suggestive of Restless Leg Syndrome. I recommend that the patient have a serum ferritin drawn for evaluation of iron deficiency anemia. If the patient has a serum ferritin less than 75 ng/mL, I recommend starting a daily iron supplement and a Vitamin C supplement for better absorption. If the serum ferritin is greater than 75 ng/mL, I recommend starting a dopamine agonist and titrating the dose until symptoms resolve. There are nonpharmacological methods to treat limb movements including daily exercise, stretching calf muscles before bed, avoiding excessive amounts of caffeine and alcohol, vitamin B supplementation, magnesium lotion massaged into legs before bed, and use of a weighted blanket. Data The data obtained during this sleep study is adequate for interpretation. Certification This sleep study has been reviewed by a board certified sleep medicine physician.
[2025-09-02 12:39] VITALS: BMI 29.8
== END 2025-08-19 11:29 | disposition home or self-care (01) ==
LOC: ANHCSM 09:15
PROVIDERS: PCP Nurse Practitioner Family; Visit Provider Nurse Practitioner Family
DX: G47.33 Obstructive sleep apnea (adult) (pediatric) (principal); I10 Essential (primary) hypertension
CPT/HCPCS: 95800